=== PATIENT | female | born 1975 | race Caucasian/White ===

== ENCOUNTER → 2017-07-05 | Day surgery (SDC) | payer BC ==
[~2017-07-05] MED LIST: BUPIVACAINE/EPINEPHRINE 0.25% PF 10 ML VIAL INFIL ONE; MIDAZOLAM HCL 2 MG/2 ML VIAL ONE; ONDANSETRON HCL 4 MG/2 ML VIAL IV PUSH ONE; PROPOFOL 200 MG/20 ML AMP IV ONE
--- NOTE | 2017-07-05 13:11 | MP ---
cc: HEMANT MACK DATE OF SURGERY July 05, 2017 PREOPERATIVE DIAGNOSIS Right groin lesion. POSTOPERATIVE DIAGNOSIS Right groin lesion. PROCEDURE PERFORMED 1. Exam under anesthesia. 2. Excision of right groin lesion. INDICATIONS Mackenzie Mcgarry is a 42-year-old who was seen in the office for complaint of lump in her right groin for years. It is bothering her with sexual activity and she states it rubs near her underwear line. She desired excision. On office examination it was felt to be too large and too deep to be safely removed in the office. As such she was scheduled for the procedures as indicated. SURGEON Hemant Mack MD POTATO PICKER Jaswant Prince, MS3 TYPE OF ANESTHESIA General using LMA. ESTIMATED BLOOD LOSS 5 mL. IV FLUID REPLACEMENT 350 mL. URINE OUTPUT None as the patient had voided prior to the procedure and urethra was not instrumented intraoperatively. PROPHYLAXIS SCDs were on and functioning throughout the entire case. SPECIMEN Right groin mass. COMPLICATIONS None. COUNTS Sponge, lap, instrument and needle counts correct x2 at the conclusion of the procedure. INTRAOPERATIVE FINDINGS A 2 x 2.5 cm palpable lump near the right groin at the superior right mons approximately 1 cm superior and lateral to the clitoral murguia. Firm smooth white mass, suspect fibroma, will await final pathology results. PROCEDURE IN DETAIL After reviewing the informed consent, the patient was taken to the operating suite where a time-out was performed to identify the patient, planned procedure, any known allergies to drugs or drug products. The patient was placed in dorsal spine position and general anesthesia via LMA was administered without difficulty and found to be adequate. The perineum was prepped and draped in normal sterile fashion. Approximately 10 cc of 0.25% Marcaine with epinephrine was injected overlying the firm palpable area. Scalpel was used to make an approximate 8 mm incision over this area. Using pickups and Metzenbaums, the tissue planes were gently dissected out allowing removal of the firm fibrotic mass of unclear final pathologic diagnosis. The skin was irrigated and dried. A series of interrupted buried sutures using 3-0 Monocryl was used. The skin was then closed in a subcuticular fashion using 4-0 Monocryl with excellent hemostasis. A pressure dressing was placed, the procedure concluded at this point. The patient tolerated the procedure well without complication. She was awoken from anesthesia. DISPOSITION The patient will be discharged to home today with office followup in a week. MD VINCENZO Reagan/SSB /12:02 PM /12:57 PM ADRIANA
== END | disposition home or self-care (01) ==
LOC: ESDC 09:33
PROVIDERS: ATTEND Obstetrics & Gynecology
DX: D23.5 Other benign neoplasm of skin of trunk (principal)
CPT/HCPCS: 00400; 11403; 88305; J2250; J2405; J3010